=== PATIENT | female | born 1985 | race Hispanic/Latino ===

== ENCOUNTER 2023-04-19 10:28 | Emergency (ER) | payer OTHER, SELFPAY ==
[2023-04-19] MEDS ORDERED: Acetaminophen 500 MG TAB ONE (11:58)
[2023-04-19 13:13] LABS: SARS-CoV-2 NAA Rapid Test DETECTED (NotDetected)
== END 2023-04-19 13:41 | disposition home or self-care (01) ==
LOC: CSHERS 10:28
DX: U07.1 COVID-19 (principal)
CPT/HCPCS: 87081; 87430; 99283

== ENCOUNTER 2023-08-16 07:37 | Inpatient (IN) | payer OTHER ==
[2023-08-16] MEDS ORDERED: ePHEDrine Sulfate 50 MG/10 ML VIAL ONE (08:00)
[2023-08-16] MEDS ORDERED: Bupivacaine 0.25% HCL 30 ML VIAL ONE (08:00)
[2023-08-16 08:06] VITALS: BMI 30.7
[2023-08-16] MEDS ORDERED: hydrALAZINE 20 MG/ML VIAL SLOW IVP PRN (08:46)
[2023-08-16] MEDS ORDERED: Morphine 4 MG/ML VIAL SLOW IVP SCH (11:15)
[2023-08-16] MEDS ORDERED: Misoprostol 200 MCG TAB PR PRN (11:52)
[2023-08-16] MEDS ORDERED: Promethazine HCl 25 MG/ML VIAL IM PRN ×2 (11:52→15:27)
[2023-08-16] MEDS ORDERED: Diphenoxylate HCl/Atropine Tablet PO PRN (11:52)
[2023-08-16] MEDS ORDERED: Tranexamic Acid 1,000 MG/10 ML VIAL IVP PRN (11:52)
[2023-08-16] MEDS ORDERED: Ondansetron PF 4 MG/2 ML Vial IVP PRN ×2 (11:52→15:27)
[2023-08-16] MEDS ORDERED: fentaNYL 50 mcg/mL 1 mL Vial SLOW IVP PRN (11:52)
[2023-08-16] MEDS ORDERED: Methylergonovine 0.2 MG/ML VIAL IM PRN (11:52)
[2023-08-16] MEDS ORDERED: Acetaminophen 500 MG TAB PO PRN (11:52)
[2023-08-16] MEDS ORDERED: Carboprost 250 MCG/ML AMP IM PRN (11:52)
[2023-08-16] MEDS ORDERED: Oxytocin 30 units/NS 500 ML 500 ML IV SCH ×2 (12:00→13:45)
[2023-08-16 12:24] LABS: Hematocrit 31.8 % (34.9-44.5); Hemoglobin 10.7 g/dL (12.0-15.5); Mean Corpuscular HGB CONC 33.6 g/dL (32.0-36.0); Mean Corpuscular Hemoglobin 27.3 pg (27.0-33.0); Mean Corpuscular Volume 81.1 fl (81.6-98.3); Mean Platelet Volume 11.3 fl (7.4-10.4); Platelet Count 181 10x3/uL (150-450); RBC Distribution Width 13.4 % (11.5-14.5); Red Blood Cell (RBC) Count 3.92 10x6/uL (3.90-5.03); White Blood Cell (WBC) Count 10.1 10x3/uL (3.5-10.5)
[2023-08-16 12:45] LABS: Hep B Surf Ag - L&D Non-Reactive S/CO (NonReactive)
[2023-08-16 12:47] LABS: Syphilis Antibody Nonreactive (Nonreactive); Syphilis Antibody Index 0.04 S/CO (<1.00 Non-Reactive)
[2023-08-16] MEDS ORDERED: Lactated Ringer's 1,000 ML IV SCH (13:45)
[2023-08-16] MEDS ORDERED: Ibuprofen 800 MG TAB PO PRN (13:46)
[2023-08-16] MEDS ORDERED: Lidocaine 1% (PF) 30 ML VIAL SC PRN (13:46)
[2023-08-16] MEDS ORDERED: HYDROcodone/Acetaminophen 5/325 mg Tablet PO PRN (13:46)
[2023-08-16] MEDS ORDERED: fentaNYL/Ropivacaine Epidural 100 ML ONE (14:37)
[2023-08-16] MEDS ORDERED: Acetaminophen 325 MG TAB PO PRN (15:27)
[2023-08-16] MEDS ORDERED: ePHEDrine Sulfate 50 MG/10 ML VIAL SLOW IVP PRN (15:27)
[2023-08-16] MEDS ORDERED: diphenhydrAMINE 50 MG/ML VIAL IVP PRN (15:27)
[2023-08-16] MEDS ORDERED: Moisturizing Cream (Eucerin) 113 GM JAR TOP PRN (15:27)
[2023-08-16] MEDS ORDERED: Lactated Ringer's 500 ML IV PRN (15:27)
[2023-08-16] MEDS ORDERED: Naloxone HCl 0.4 mg/ml Vial IVP PRN ×2 (15:27)
[2023-08-16] MEDS ORDERED: fentaNYL 2 mcg/Ropivacaine 0.2% Epidural 100 ML CADD EPIDURAL SCH (15:30)
[2023-08-16] MEDS ORDERED: Communication Order-Pharmacy FS SCH (15:30)
[2023-08-16 17:57] LABS: #Monocytes 0.6 10x3/uL (0.0-1.1); #Neutrophils 8.1 10x3/uL (1.5-8.4); %Basophils 0.3 % (0.0-2.0); %Eosinophils 0.3 % (0.0-6.0); %Lymphocytes 14.4 % (18.0-47.0); %Neutrophils 78.7 % (40.0-75.0); Hematocrit 28.5 % (34.9-44.5); Hemoglobin 9.6 g/dL (12.0-15.5); Mean Corpuscular HGB CONC 33.7 g/dL (32.0-36.0); Mean Corpuscular Hemoglobin 27.3 pg (27.0-33.0); Mean Platelet Volume 10.9 fl (7.4-10.4); Platelet Count 156 10x3/uL (150-450); RBC Distribution Width 13.4 % (11.5-14.5); Red Blood Cell (RBC) Count 3.52 10x6/uL (3.90-5.03); White Blood Cell (WBC) Count 10.3 10x3/uL (3.5-10.5)
[2023-08-16 19:18] LABS: INR-International Normal Ratio 0.9; PTT 26.9 sec (22.0-33.0); Prothrombin Time 10.1 sec (9.5-12.1)
[2023-08-17] MEDS ORDERED: hydrALAZINE 20 MG/ML VIAL SLOW IVP PRN (06:56)
[2023-08-17] MEDS ORDERED: Ondansetron PF 4 MG/2 ML Vial IVP PRN (06:56)
[2023-08-17] MEDS ORDERED: Promethazine HCl 25 MG/ML VIAL IM PRN (06:56)
[2023-08-17] MEDS ORDERED: Lanolin Ointment 7 GM TUBE TOP PRN (06:56)
[2023-08-17] MEDS ORDERED: Milk Of Magnesia 30 ML UDCUP PO PRN (06:56)
[2023-08-17] MEDS ORDERED: Benzocaine-Menthol 82.5 ML CAN TOP PRN (06:56)
[2023-08-17] MEDS ORDERED: Boostrix 0.5 ML (Tdap) VIAL (>/=7 yrs of age) IM ONE (06:56)
[2023-08-17] MEDS ORDERED: diphenhydrAMINE 25 MG CAP PO PRN (06:56)
[2023-08-17] MEDS ORDERED: Bisacodyl 10 MG SUPP PR PRN (06:56)
[2023-08-17] MEDS: Ferrous Sulfate 325 MG TAB PO SCH ×2 (09:00→17:24)
[2023-08-17] MEDS: Prenatal Vitamin 1 TAB PO SCH (09:30)
[2023-08-17] MEDS: HYDROcodone/Acetaminophen 5/325 mg Tablet PO PRN ×3 (09:30→21:21)
[2023-08-17] MEDS: Docusate 100 MG CAP PO SCH ×2 (09:30→21:21)
[2023-08-17] MEDS: Ibuprofen 800 MG TAB PO SCH ×2 (14:06→21:21)
[2023-08-18] MEDS: HYDROcodone/Acetaminophen 5/325 mg Tablet PO PRN ×3 (05:41→12:55)
[2023-08-18] MEDS: Ibuprofen 800 MG TAB PO SCH ×2 (05:41→12:55)
[2023-08-18 07:30] VITALS: BP 99/56; TEMP 97.6
[2023-08-18] MEDS: Prenatal Vitamin 1 TAB PO SCH (09:08)
[2023-08-18] MEDS: Docusate 100 MG CAP PO SCH (09:08)
[2023-08-18] MEDS: Ferrous Sulfate 325 MG TAB PO SCH (09:08)
== END 2023-08-18 15:00 | disposition home or self-care (01) | DRG 807 ==
LOC: CSHLD/OP 07:37 → OBSVTOIN 12:14 → CSHLD 12:14 → CSHPP 08-17 07:34
PROVIDERS: ADMIT Family Medicine; ATTEND Family Medicine
PROC: 10907ZC Drainage of Amniotic Fluid, Therapeutic from Products of Conception, Via Natural or Artificial Opening (ICD-10-PCS; 2023-08-16)
PROC: 10H07YZ Insertion of Other Device into Products of Conception, Via Natural or Artificial Opening (ICD-10-PCS; 2023-08-16)
PROC: 10E0XZZ Delivery of Products of Conception, External Approach (ICD-10-PCS; principal; 2023-08-17)
DX: O67.9 Intrapartum hemorrhage, unspecified (principal); Z37.0 Single live birth; Z3A.38 38 weeks gestation of pregnancy; O70.0 First degree perineal laceration during delivery
CPT/HCPCS: 36415; 51702; 76815; 85027; 85384; 85610; 85730; 86780; 86850; 86900; 86901; 87340; 90715; 99285; G0378; J2270; S0020